=== PATIENT | male | born 1985 | race Caucasian/White ===

== ENCOUNTER 2018-07-01 11:50 | Emergency (ER) | payer OTHER ==
[2018-07-01] MEDS: KETOROLAC 60 MG/2 ML VIAL (J1885) IM (13:58)
== END 2018-07-01 14:47 | disposition home or self-care (01) ==
LOC: M ED 11:50
DX: G44.009 Cluster headache syndrome, unspecified, not intractable (principal); F17.210 Nicotine dependence, cigarettes, uncomplicated
CPT/HCPCS: J1885

== ENCOUNTER → 2025-09-13 | Outpatient (CLI) | payer OTHER ==
[~2025-09-13] MED LIST: NAPR-837 PO; NAPR-885 PO; ZOFR4TAB14 SL
== END ==
LOC: M RAD 15:50
PROVIDERS: ATTEND Student in an Organized Health Care Education/Training Program
DX: M79.604 Pain in right leg (principal)